=== PATIENT | female | born 1965 | race Hispanic/Latino ===

== ENCOUNTER 2017-06-14 17:57 | Emergency (ER) | payer SELFPAY ==
[2017-06-14 17:58] VITALS: BMI 34.7
[2017-06-14 18:02] VITALS: TEMP 97.7
--- NOTE | 2017-06-14 19:20 | ED PDOC ---
Arrival/HPI - General Chief Complaint: Medical Clearance Time Seen by Provider: 06/14/17 18:07 Historian: Patient - History of Present Illness Narrative History of Present Illness (Text): 06/14/17 18:34 51 year old female who presents to the Emergency department brought in by Ivelisse JAEGER under arrest. 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 Patient states her last dose was yesterday, states she has not had her dose today because it is not time yet. Patient also reports LUQ pain, which she states is chronic and comes and goes. Patient reports associated cough , nausea, and diarrhea for the past 3 days. Patient denies any fever, chills, radiation, back pain, trauma/injury, shortness of breath, chest pain, vomiting, urinary symptoms, abdominal surgery, or any other complaints. Symptom Onset: Gradual Symptom Course: Unchanged Activities at Onset: Rest, Light Context: Home Past Medical History - Provider Review Nursing Documentation Reviewed: Yes - Infectious Disease Hx of Infectious Diseases: None - Tetanus Immunization Tetanus Immunization: Unknown - Reproductive Menopause: Yes - Cardiac Hx Cardiac Disorders: No Other/Comment: cardiac arrest, - Pulmonary Hx Respiratory Disorders: Yes Hx Pulmonary Embolism: Yes - Neurological Hx Neurological Disorder: No - HEENT Hx HEENT Disorder: No - Renal Hx Renal Disorder: No - Endocrine/Metabolic Hx Endocrine Disorders: Yes Hx Hypothyroidism: Yes - Hematological/Oncological Hx Blood Disorders: Yes Hx Hepatitis C: Yes - Integumentary Hx Dermatological Disorder: No - Musculoskeletal/Rheumatological Hx Musculoskeletal Disorders: Yes Hx Falls: No Hx Herniated Disk: Yes - Gastrointestinal Hx Gastrointestinal Disorders: No - Genitourinary/Gynecological Hx Genitourinary Disorders: No - Psychiatric Hx Psychophysiologic Disorder: No Hx Substance Use: No - Past Surgical History Past Surgical History: No Previous - Surgical History Hx Section: Yes Hx Tonsillectomy: Yes Other/Comment: - Anesthesia Hx Anesthesia: Yes Hx Anesthesia Reactions: No Hx Malignant Hyperthermia: No - Suicidal Assessment Feels Threatened In Home Enviroment: No Family/Social History - Physician Review Nursing Documentation Reviewed: Yes Family/Social History: Unknown Family HX Smoking Status: Former Smoker Hx Alcohol Use: No Hx Substance Use: No Hx Substance Use Treatment: Yes Allergies/Home Meds Allergies/Adverse Reactions: Allergies No Known Allergies Allergy (Verified 06/14/17 18:11) Home Medications: Home Meds Medication Instructions Recorded Confirmed Levothyroxine [Synthroid] 1 tab PO DAILY 11/28/16 06/14/17 Warfarin [Coumadin] 6 mg PO DAILY 11/28/16 06/14/17 Enalapril Maleate [Vasotec] 1 tab PO DAILY 06/14/17 06/14/17 Lorazepam [Ativan] 1 mg PO DAILY 06/14/17 06/14/17 Review of Systems - Physician Review All systems were reviewed & negative as marked: Yes - Review of Systems Constitutional: Normal. absent: Fevers Eyes: Normal ENT: Normal Respiratory: Cough. absent: SOB Cardiovascular: Normal. absent: Chest Pain Gastrointestinal: Abdominal Pain, Diarrhea, Nausea Genitourinary Female: Normal. absent: Dysuria, Frequency, Hematuria, Urine Output Changes Musculoskeletal: Normal. absent: Back Pain, Neck Pain Skin: Normal. absent: Rash Neurological: Normal. absent: Headache, Dizziness Endocrine: Normal Hemo/Lymphatic: Normal Psychiatric: Normal Physical Exam Vital Signs Reviewed: Yes Vital Signs Temp Pulse Resp BP Pulse Ox 06/14/17 22:12 85 18 139/78 99 06/14/17 18:02 97.7 F 84 16 144/67 96 Temperature: Afebrile Blood Pressure: Normal Pulse: Regular Respiratory Rate: Normal Appearance: Positive for: Well-Appearing, Non-Toxic, Comfortable Pain Distress: None Mental Status: Positive for: Alert and Oriented X 3 - Systems Exam Head: Present: Atraumatic, Normocephalic Pupils: Present: PERRL Extroacular Muscles: Present: EOMI Conjunctiva: Present: Normal Mouth: Present: Moist Mucous Membranes Neck: Present: Normal Range of Motion Respiratory/Chest: Present: Clear to Auscultation, Good Air Exchange. No: Respiratory Distress, Accessory Muscle Use Cardiovascular: Present: Regular Rate and Rhythm, Normal S1, S2. No: Murmurs Abdomen: Present: Normal Bowel Sounds, Other (no pulsatile mass). No: Tenderness, Distention, Peritoneal Signs, Rebound, Guarding, Mass/Organomegaly Back: Present: Normal Inspection. No: CVA Tenderness, Midline Tenderness Upper Extremity: Present: Normal Inspection, Normal ROM, NORMAL PULSES, Neurovascularly Intact. No: Cyanosis, Edema Lower Extremity: Present: Normal Inspection, NORMAL PULSES, Normal ROM, Neurovascularly Intact, Capillary Refill < 2 s. No: Edema, CALF TENDERNESS, Cyanosis, Doyle's Sign, Tenderness, Swelling, Erythema, Deformity, Temperature Abnormalties Neurological: Present: GCS=15, CN II-XII Intact, Speech Normal, Motor Func Grossly Intact, Normal Sensory Function Skin: Present: Warm, Dry, Normal Color. No: Rashes Psychiatric: Present: Alert, Oriented x 3, Normal Insight, Normal Concentration Medical Decision Making ED Course and Treatment: 06/14/17 18:34 Impression: 51 year old female brought in under police custody. Pt complaining of LUQ pain with cough, nausea, and diarrhea x 3 days. Plan: -- US Duplex Lower Extremities -- EKG -- Chest X-ray -- Labs, cardiac enzymes, D-dimer -- Urinalysis, urine cultures -- Zofran -- Pepcid -- Reassess and disposition Progress Notes: 06/14/17 20:45 Lab results reviewed. UA still pending. US doppler of LE shows no DVT, EKG and CXR are wnl. 06/14/17 21:30 Pt medicated with a dose of her usual dose of coumadin 6 mg PO. Otherwise, pt is medically cleared for incarceration. Re-evaluation Time: 20:49 Reassessment Condition: Re-examined, Improved (Pt is laying in bed comfortably, reports of a mild headache, denies any chest pain, SOB, abdominal pain or nausea , had no episodes of diarrhea while in the ER. Given tylenol for headache and kayexalate for K 5.2.) - Lab Interpretations Lab Results: 06/14/17 20:00 06/14/17 20:00 Lab Results 06/14/17 20:45: Urine Color Yellow, Urine Appearance Clear, Urine pH 6.0, Ur Specific [place] 1.025, Urine Protein Negative, Urine Glucose (UA) Negative, Urine Ketones Negative, Urine Blood Negative, Urine Nitrate Negative, Urine Bilirubin Negative, Urine Urobilinogen 0.2, Ur Leukocyte Esterase Negative 06/14/17 20:00: Lipase 171 06/14/17 20:00: Sodium 137, Potassium 5.2 H, Chloride 103, Carbon Dioxide 26, Anion Gap 13, BUN 12, Creatinine 0.8, Est GFR ( Amer) > 60, Est GFR (Non- Af Amer) > 60, Random Glucose 104, Calcium 9.4, Total Bilirubin 0.8, AST 60 H, ALT 50, Alkaline Phosphatase 101, Lactate Dehydrogenase 876 H, Total Creatine Kinase 146, Troponin I < 0.01, Total Protein 8.0, Albumin 4.2, Globulin 3.7, Albumin/Globulin Ratio 1.1 06/14/17 20:00: PT 10.9, INR 1.01, APTT 26.2, D-Dimer, Quantitative 0.24 06/14/17 20:00: WBC 8.4, RBC 4.79, Hgb 15.0, Hct 44.4, MCV 92.7, MCH 31.3, MCHC 33.8, RDW 14.8 H, Plt Count 218, MPV 11.2 H, Gran % 73.5 H, Lymph % (Auto) 16.2 L, [place] % (Auto) 9.4 H, Eos % (Auto) 0.7 L, Baso % (Auto) 0.2, Gran # 6.18, Lymph # 1.4, [place] # 0.8 H, Eos # 0.1, Baso # 0.02 I have reviewed the lab results: Yes (K 5.2, trop (-), d-dimer (-), INR 1) Interpretation: All labs normal - RAD Interpretation Narrative RAD Interpretations (Text): 06/14/17 20:48 CXR: NAD as read by FANNIE US doppler b/l LE : (-) DVT, as per US tech. Radiology Orders: 06/14/17 18:34 DUPLEX LOWER EXTRM VEIN BILAT [US] Stat 06/14/17 18:35 CHEST PORTABLE [RAD] Stat - EKG Interpretation EKG Interpretation (Text): 06/14/17 20:49 EKG: NSR at 72 bpm, normal axis, (-) acute ST changes, as read by PA Interpreted by ED Physician: Yes Type: 12 lead EKG - Medication Orders Current Medication Orders: Discontinued Medications Acetaminophen (Tylenol 325mg Tab) 650 mg PO STAT STA Stop: 06/14/17 20:42 Last Admin: 06/14/17 20:46 Dose: 650 mg Acetaminophen (Tylenol 325mg Tab) Confirm Administered Dose 650 mg .ROUTE .STK- MED ONE Stop: 06/14/17 20:47 Last Admin: 06/14/17 20:53 Dose: Famotidine (Pepcid) 20 mg IVP STAT STA Stop: 06/14/17 18:37 Last Admin: 06/14/17 20:12 Dose: 20 mg Ondansetron HCl (Zofran Inj) 4 mg IVP STAT STA Stop: 06/14/17 18:37 Last Admin: 06/14/17 20:12 Dose: 4 mg Sodium Polystyrene Sulfonate (Kayexalate Oral Susp) 15 gm PO STAT STA Stop: 06/14/17 20:48 Last Admin: 06/14/17 21:25 Dose: 15 gm Warfarin Sodium (Coumadin) 6 mg PO 1800 ROMAN PRN Reason: Protocol Last Admin: 06/14/17 21:54 Dose: 6 mg - PA / ACCOUNT SUPPORT MANAGER / Resident Statement MD/DO has reviewed & agrees with the documentation as recorded. - Scribe Statement The provider has reviewed the documentation as recorded by the Arsen Mendiola Provider Scribe Attestation: All medical record entries made by the Nedaibisac were at my direction and personally dictated by me. I have reviewed the chart and agree that the record accurately reflects my personal performance of the history, physical exam, medical decision making, and the department course for this patient. I have also personally directed, reviewed, and agree with the discharge instructions and disposition. Disposition/Present on Arrival - Present on Arrival Any Indicators Present on Arrival: Yes History of DVT/PE: Yes History of Uncontrolled Diabetes: No Urinary Catheter: No History of Decub. Ulcer: No History Surgical Site Infection Following: None - Disposition Have Diagnosis and Disposition been Completed?: Yes Diagnosis: Abdominal pain Disposition: RELEASED IN POLICE CUSTODY Disposition Time: 21:35 Patient Plan: Discharge Condition: STABLE Discharge Instructions (ExitCare): Acute Abdominal Pain (ED) Print Language: KAZAKH Additional Instructions: Patient is medically cleared for incarceration. Return to the ER at any time for any new or worsening symptoms. Referrals: Cara Shrestha [Primary Care Provider] - Follow up with primary
[2017-06-14 20:20] LABS: BASO # 0.02 K/mm3 (0.0-2.0); BASO % 0.2 % (0.0-3.0); EOS # 0.1 (0.0-0.7); EOS % 0.7 % (1.5-5.0); GRAN # 6.18 (1.4-6.5); GRAN % 73.5 % (50.0-68.0); LYMPH # 1.4 (1.2-3.4); LYMPH % 16.2 % (22.0-35.0); MEAN CELL VOLUME 92.7 fL (80.0-105.0); MEAN CORPUSCULAR HEMOGLOBIN 31.3 pg (25.0-35.0); MEAN CORPUSCULAR HGB CONC 33.8 g/dl (31.0-37.0); MEAN PLATELET VOLUME 11.2 fl (7.0-11.0); MONO # 0.8 (0.1-0.6); MONO % 9.4 % (1.0-6.0); PLATELET COUNT 218 10^3/uL (120.0-450.0); RBC 4.79 10^6/uL (3.5-6.1); RED CELL DISTRIBUTION WIDTH 14.8 % (11.5-14.5); WHITE BLOOD COUNT 8.4 10^3/ul (4.5-11.0)
[2017-06-14 20:27] LABS: ALB/GLOB RATIO 1.1 (1.1-1.8); ALBUMIN 4.2 g/dL (3.0-4.8); ALT/SGPT 50 U/L (7-56); AST/SGOT 60 U/L (15-39); BLOOD UREA NITROGEN 12 mg/dL (7-21); CALCIUM 9.4 mg/dL (8.4-10.5); GFR AFRICAN-AMERICAN > 60; GFR NON-AFRICAN AMERICAN > 60
[2017-06-14 20:32] LABS: INR 1.01 (0.93-1.08); PARTIAL THROMBOPLASTIN TIME 26.2 Seconds (23.7-30.8); PROTHROMBIN TIME 10.9 Seconds (9.9-11.8)
[2017-06-14 20:33] LABS: D DIMER 0.24 mg/L FEU (0-0.50)
[2017-06-14 20:39] LABS: TROPONIN I < 0.01 ng/mL
[2017-06-14] MEDS ORDERED: Sod Polystyrene Sulf 15 gm/60 ml Oral Susp PO STA (20:47)
[2017-06-14 21:16] LABS: URINE BILIRUBIN NEGATIVE (NEGATIVE); URINE BLOOD NEGATIVE (NEGATIVE); URINE GLUCOSE (UA) NEGATIVE (NEGATIVE); URINE LEUKOCYTE ESTERASE NEGATIVE Leu/uL (NEGATIVE); URINE NITRATE NEGATIVE (NEGATIVE); URINE PROTEIN NEGATIVE mg/dL (<30 mg/dL); URINE UROBILINOGEN 0.2 E.U./dL (<1 E.U./dL)
[2017-06-14 21:18] LABS: URINE APPEARANCE CLEAR (CLEAR); URINE COLOR YELLOW (YELLOW)
[2017-06-14 22:13] VITALS: BP 139/78; PULSE 85; RESP 18; O2SAT 99
--- NOTE | 2017-06-15 09:27 | RAD ---
HISTORY: LUQ pain COMPARISON: 11/10/2016 FINDINGS: LUNGS: No active pulmonary disease. PLEURA: No significant pleural effusion identified, no pneumothorax apparent. CARDIOVASCULAR: Normal. OSSEOUS STRUCTURES: No significant abnormalities. VISUALIZED UPPER ABDOMEN: Normal. OTHER FINDINGS: None. IMPRESSION: No active disease.
--- NOTE | 2017-06-15 11:35 | CARD ---
APPROVED REPORT EKG Measurement Heart [id number] <Conclusion> Normal sinus rhythm Normal ECG
--- NOTE | 2017-06-15 22:56 | CARD ---
APPROVED REPORT EKG Measurement Heart [id number] <Conclusion> Normal sinus rhythm Prolonged QT Abnormal ECG
--- NOTE | 2017-06-16 11:33 | US ---
HISTORY: Leg pain and swelling. Evaluate for DVT PHYSICIAN(S): Clayton Hopson MD. TECHNIQUE: Duplex sonography and color-flow Doppler with graded compression were used to evaluate the deep venous systems of both lower extremities. FINDINGS: The visualized deep venous systems of both lower extremities are sonographically normal and compressible. Normal wave forms and augmentation are seen. There is no sonographic evidence for deep venous thrombosis in the visualized segments of both lower extremities. IMPRESSION: No sonographic evidence for deep venous thrombosis in the visualized segments of both lower extremities.
== END 2017-06-14 22:12 ==
LOC: ED 17:57
DX: R10.9 Unspecified abdominal pain (principal)
CPT/HCPCS: 71010; 80053; 81003; 82550; 83615; 83690; 84484; 85025; 85378; 85610; 85730; 87086; 93005; 93970; 96374; 96375; 99282; J2405

== ENCOUNTER 2017-11-23 09:28 | Emergency (ER) | payer MEDICAID ==
[2017-11-23] MEDS ORDERED: Naloxone 0.4 mg/ml Inj (Adult) ONE (09:32)
[2017-11-23 09:36] VITALS: BMI 28.3
--- NOTE | 2017-11-23 09:57 | ED PDOC ---
Arrival/HPI - General Chief Complaint: Substance Abuse Time Seen by Provider: 11/23/17 09:47 Historian: EMS - History of Present Illness Narrative History of Present Illness (Text): 11/23/17 09:58 A 52 year old female was brought in by friend to the emergency department after becoming unresponsive. Limited history due to patient's condition. Time/Duration: Prior to Arrival Symptom Onset: Sudden Symptom Course: Unchanged Activities at Onset: Rest Past Medical History - Provider Review Nursing Documentation Reviewed: Yes - Infectious Disease Hx of Infectious Diseases: None - Tetanus Immunization Tetanus Immunization: Unknown - Cardiac Hx Cardiac Disorders: Yes Hx Hypertension: Yes Other/Comment: cardiac arrest, - Pulmonary Hx Respiratory Disorders: Yes Hx Pulmonary Embolism: Yes - Neurological Hx Neurological Disorder: No - HEENT Hx HEENT Disorder: No - Renal Hx Renal Disorder: No - Endocrine/Metabolic Hx Endocrine Disorders: Yes Hx Hypothyroidism: Yes - Hematological/Oncological Hx Blood Disorders: Yes Hx Hepatitis C: Yes - Integumentary Hx Dermatological Disorder: No - Musculoskeletal/Rheumatological Hx Musculoskeletal Disorders: Yes Hx Falls: No Hx Herniated Disk: Yes - Gastrointestinal Hx Gastrointestinal Disorders: No - Genitourinary/Gynecological Hx Genitourinary Disorders: No - Psychiatric Hx Psychophysiologic Disorder: No Hx Substance Use: No (pt denies drug use) - Past Surgical History Past Surgical History: No Previous - Surgical History Hx Section: Yes Hx Tonsillectomy: Yes Other/Comment: - Anesthesia Hx Anesthesia: Yes Hx Anesthesia Reactions: No Hx Malignant Hyperthermia: No - Suicidal Assessment Feels Threatened In Home Enviroment: No Family/Social History - Physician Review Nursing Documentation Reviewed: Yes Family/Social History: Other (nc) Smoking Status: Former Smoker Hx Alcohol Use: Yes Frequency of alcohol use: Socially Hx Substance Use: No (pt denies drug use) Hx Substance Use Treatment: Yes Allergies/Home Meds Allergies/Adverse Reactions: Allergies No Known Allergies Allergy (Verified 11/23/17 09:36) Home Medications: Home Meds Medication Instructions Recorded Confirmed Levothyroxine [Synthroid] 1 tab PO DAILY 11/28/16 11/23/17 Warfarin [Coumadin] 6 mg PO DAILY 11/28/16 11/23/17 Enalapril Maleate [Vasotec] 1 tab PO DAILY 06/14/17 11/23/17 Lorazepam [Ativan] 1 mg PO DAILY 06/14/17 11/23/17 Review of Systems - Review of Systems Constitutional: absent: Fevers Respiratory: absent: SOB Cardiovascular: absent: Chest Pain Gastrointestinal: absent: Abdominal Pain, Vomiting Genitourinary Female: absent: Dysuria Neurological: absent: Headache, Dizziness Psychiatric: absent: Suicidal Ideation Physical Exam Vital Signs Reviewed: Yes Vital Signs Temp Pulse Resp BP Pulse Ox 11/23/17 13:28 98.6 F 78 18 145/79 98 11/23/17 09:39 96 H 22 154/85 H 96 - Systems Exam Head: Present: Atraumatic, Normocephalic Pupils: Present: PERRL Extroacular Muscles: Present: EOMI Conjunctiva: Present: Normal Mouth: Present: Moist Mucous Membranes Neck: Present: Normal Range of Motion Respiratory/Chest: Present: Clear to Auscultation, Good Air Exchange. No: Respiratory Distress, Accessory Muscle Use Cardiovascular: Present: Regular Rate and Rhythm, Normal S1, S2. No: Murmurs Abdomen: Present: Normal Bowel Sounds. No: Tenderness, Distention, Peritoneal Signs Upper Extremity: Present: NORMAL PULSES. No: Cyanosis, Edema Lower Extremity: No: Edema Neurological: Present: GCS=15, CN II-XII Intact, Motor Func Grossly Intact, Normal Sensory Function, Other (no focal deficits) Skin: Present: Warm, Dry. No: Rashes Psychiatric: Present: Alert, Oriented x 3 Medical Decision Making ED Course and Treatment: 11/23/17 09:54 Patient arrived with agonal respirations. Skin was cyanotic and mottled. After patient was given 0.4 mg of narcan, patient woke up. Skin pinked up O2 98% on monitor. Pupils pinpoint, pined up, now mid-range. Patient is awake, alert and oriented X3. Full exam is done at this point. Spoke with patient's daughter on the phone, who states patient has a history of snorting heroine. Daughter saw patient an hour ago, normal at that time. Patient told daughter she was going out. 11/23/17 12:15 Patient is resting comfortably, in no distress. She admits to using half a bag of heroine this morning. She states she relapsed after being clean for 2 weeks. 11/23/17 13:40 Patient is resting comfortably, requesting to be discharged. - Lab Interpretations Lab Results: 11/23/17 10:04 11/23/17 10:04 Lab Results 11/23/17 10:04: Sodium 137, Potassium 4.2, Chloride 103, Carbon Dioxide 22, Anion Gap 16, BUN 14, Creatinine 1.0, Est GFR ( Amer) > 60, Est GFR (Non- Af Amer) 58, Random Glucose 243 H, Calcium 9.4, Total Bilirubin 0.8, AST 62 H, ALT 62 H, Alkaline Phosphatase 108, Total Protein 7.9, Albumin 4.4, Globulin 3.5 , Albumin/Globulin Ratio 1.3 11/23/17 10:04: PT 16.9 H, INR 1.52 H 11/23/17 10:04: WBC 5.2 D, RBC 4.61, Hgb 14.9, Hct 44.9, MCV 97.4, MCH 32.3, MCHC 33.2, RDW 13.8, Plt Count 222, MPV 10.3, Gran % 54.1, Lymph % (Auto) 33.3, [place] % (Auto) 10.5 H, Eos % (Auto) 1.5, Baso % (Auto) 0.6, Gran # 2.83, Lymph # 1.7, [place] # 0.6, Eos # 0.1, Baso # 0.03 11/23/17 09:42: POC Glucose (mg/dL) 194 H I have reviewed the lab results: Yes - Medication Orders Current Medication Orders: Discontinued Medications Sodium Chloride (Sodium Chloride 0.9%) 1,000 mls @ 999 mls/hr IV .Q1H1M STA Stop: 11/23/17 13:12 Last Admin: 11/23/17 10:05 Dose: 999 mls/hr eMAR Start Stop Document 11/23/17 10:05 EWO (Rec: 11/23/17 12:57 [id number]) Intravenous Solution Start Date 11/23/17 Start Time 10:05 End Date 11/23/17 End time 11:05 Total Infusion Time 60 - Scribe Statement The provider has reviewed the documentation as recorded by the Arsen Barrientos Provider Scribe Attestation: All medical record entries made by the Scribe were at my direction and personally dictated by me. I have reviewed the chart and agree that the record accurately reflects my personal performance of the history, physical exam, medical decision making, and the department course for this patient. I have also personally directed, reviewed, and agree with the discharge instructions and disposition. Disposition/Present on Arrival - Present on Arrival Any Indicators Present on Arrival: Yes History of DVT/PE: Yes History of Uncontrolled Diabetes: No Urinary Catheter: No History of Decub. Ulcer: No History Surgical Site Infection Following: None - Disposition Have Diagnosis and Disposition been Completed?: Yes Diagnosis: Opioid overdose Disposition: HOME/ ROUTINE Disposition Time: 13:40 Condition: IMPROVED Discharge Instructions (ExitCare): Opioid Overdose (ED) Referrals: Sunday Guillaume MD [Primary Care Provider] - Follow up with primary Forms: [employer] (Yakut)
[2017-11-23 10:11] LABS: BASO # 0.03 K/mm3 (0.0-2.0); BASO % 0.6 % (0.0-3.0); EOS # 0.1 (0.0-0.7); EOS % 1.5 % (1.5-5.0); GRAN # 2.83 (1.4-6.5); GRAN % 54.1 % (50.0-68.0); HEMOGLOBIN 14.9 g/dL (12.0-16.0); LYMPH # 1.7 (1.2-3.4); LYMPH % 33.3 % (22.0-35.0); MEAN CELL VOLUME 97.4 fl (80.0-105.0); MEAN CORPUSCULAR HEMOGLOBIN 32.3 pg (25.0-35.0); MEAN CORPUSCULAR HGB CONC 33.2 g/dl (31.0-37.0); MEAN PLATELET VOLUME 10.3 fl (7.0-11.0); MONO # 0.6 (0.1-0.6); MONO % 10.5 % (1.0-6.0); RBC 4.61 10^6/uL (3.5-6.1); RED CELL DISTRIBUTION WIDTH 13.8 % (11.5-14.5); WHITE BLOOD COUNT 5.2 10^3/ul (4.5-11.0)
[2017-11-23 10:22] LABS: ALB/GLOB RATIO 1.3 (1.1-1.8); ALBUMIN 4.4 g/dL (3.0-4.8); ALT/SGPT 62 U/L (7-56); AST/SGOT 62 U/L (14-36); BLOOD UREA NITROGEN 14 mg/dL (7-21); CALCIUM 9.4 mg/dL (8.4-10.5); GFR AFRICAN-AMERICAN > 60; GFR NON-AFRICAN AMERICAN 58
[2017-11-23 10:25] LABS: INR 1.52 (0.93-1.08); PROTHROMBIN TIME 16.9 SECONDS (9.4-12.5)
[2017-11-23] MEDS ORDERED: Sodium Chloride 0.9% 1,000 ML IV STA (12:12)
[2017-11-23 13:37] VITALS: BP 145/79; PULSE 78; RESP 18; TEMP 98.6; O2SAT 98
--- NOTE | 2017-11-23 15:24 | CARD ---
APPROVED REPORT EKG Measurement Heart [id number] <Conclusion> Accelerated Junctional rhythm with frequent premature ventricular complexes Nonspecific T wave abnormality Prolonged QT Abnormal ECG
== END 2017-11-23 13:51 | disposition home or self-care (01) ==
LOC: ED 09:28
DX: T40.2X1A Poisoning by other opioids, accidental (unintentional), initial encounter (principal); Y92.89 Other specified places as the place of occurrence of the external cause; I10 Essential (primary) hypertension; Z87.891 Personal history of nicotine dependence
CPT/HCPCS: 80053; 82948; 85025; 85610; 93005; 96360; 99284; J2310; J7040

== ENCOUNTER 2018-03-01 13:07 | Observation (INO) | payer MEDICAID ==
[2018-03-01 13:08] VITALS: BMI 28.3
--- NOTE | 2018-03-01 13:19 | ED PDOC ---
Arrival/HPI - General Historian: Patient - History of Present Illness Time/Duration: Prior to Arrival Symptom Onset: Sudden Symptom Course: Improving Activities at Onset: Light Context: Other (Bus) - General Time Seen by Provider: 03/01/18 13:08 - History of Present Illness Narrative History of Present Illness (Text): 03/01/18 13:14 52 year old female who presents to the emergency department s/p being found unresponsive on the bus. Patient reportedly was found by business intelligence consultant on the bus, face down on the floor. EMS notes patient was unresponsive and had slow respirations. EMS administered intranasal Narcan with immediate improvement. Patient admits to taking heroine prior to incident and drinking alcohol this morning. (Jerry Gonzales) Past Medical History - Provider Review Nursing Documentation Reviewed: Yes - Infectious Disease Hx of Infectious Diseases: None - Tetanus Immunization Tetanus Immunization: Unknown - Cardiac Hx Cardiac Disorders: Yes Hx Hypertension: Yes Other/Comment: cardiac arrest, - Pulmonary Hx Respiratory Disorders: Yes Hx Pulmonary Embolism: Yes - Neurological Hx Neurological Disorder: No - HEENT Hx HEENT Disorder: No - Renal Hx Renal Disorder: No - Endocrine/Metabolic Hx Endocrine Disorders: Yes Hx Hypothyroidism: Yes - Hematological/Oncological Hx Blood Disorders: Yes Hx Hepatitis C: Yes - Integumentary Hx Dermatological Disorder: No - Musculoskeletal/Rheumatological Hx Musculoskeletal Disorders: Yes Hx Herniated Disk: Yes - Gastrointestinal Hx Gastrointestinal Disorders: No - Genitourinary/Gynecological Hx Genitourinary Disorders: No - Psychiatric Hx Psychophysiologic Disorder: No Hx Substance Use: Yes - Past Surgical History Past Surgical History: No Previous - Surgical History Hx Section: Yes (x3) Hx Tonsillectomy: Yes Other/Comment: - Anesthesia Hx Anesthesia: Yes Hx Anesthesia Reactions: No Hx Malignant Hyperthermia: No - Suicidal Assessment Feels Threatened In Home Enviroment: No Family/Social History - Physician Review Nursing Documentation Reviewed: Yes Family/Social History: Unknown Family HX Smoking Status: Light Smoker < 10 Cigarettes Daily Hx Alcohol Use: Yes Frequency of alcohol use: Few days per week Hx Substance Use: Yes Substance used: heroin Hx Substance Use Treatment: Yes Allergies/Home Meds Allergies/Adverse Reactions: Allergies No Known Allergies Allergy (Verified 03/01/18 13:14) Home Medications: Home Meds Medication Instructions Recorded Confirmed No Known Home Med 03/01/18 03/01/18 Review of Systems - Review of Systems Constitutional: Fatigue. absent: Fevers Eyes: absent: Vision Changes, Eye Pain Respiratory: Cough. absent: SOB Cardiovascular: absent: Chest Pain, GARCIA, Orthopnea Gastrointestinal: Nausea. absent: Abdominal Pain, Vomiting, Appetite Changes, Hematochezia Genitourinary Female: absent: Dysuria, Frequency, Hematuria Musculoskeletal: Back Pain. absent: Neck Pain Skin: absent: Rash Neurological: absent: Headache, Dizziness, Focal Weakness Endocrine: absent: Polyuria Hemo/Lymphatic: absent: Easy Bleeding Psychiatric: Depression. absent: Anxiety, Suicidal Ideation Physical Exam Vital Signs Reviewed: Yes Temperature: Afebrile Blood Pressure: Hypertensive Pulse: Regular Respiratory Rate: Normal Appearance: Positive for: Comfortable Mental Status: Positive for: Alert and Oriented X 3 - Physical Exam Narrative Physical Exam (Text): 03/01/18 13:26 Head: Atraumatic. Normocephalic. Eyes: Pupils pinpoint but reactive. Visual acuity and espana intact. Extraocular movements intact. No conjunctival injection. ENT: Mucous membranes are moist and intact. Oropharynx is clear and symmetric. Neck: Supple. Full ROM. No JVD. No lymphadenopathy. No midline tenderness. Cardiovascular: Regular rate. Regular rhythm. No murmurs, rubs, or gallops. Distal pulses are 2+ and symmetric. Pulmonary/Chest: No evidence of respiratory distress. Clear to auscultation bilaterally. No wheezing, rales or rhonchi. Abdominal: Soft and non-distended. There is no tenderness. No rebound, guarding, or rigidity. No organomegaly. Good bowel sounds. Back: No CVA tenderness. Mild lower lumbar paraspinal tenderness. No deformity. No pain with straight leg testing. Extremities: Bilateral leg edema, nonpitting. No cyanosis. No clubbing. Full range of motion in all extremities. No calf tenderness. No streaking or cellulitis. Skin: Skin is warm and dry. No petechiae. No purpura. Neurological: Alert, awake, and oriented to person, place, time, and situation. Normal speech. No facial droop. No pronator drift. Conversive. No meningeal signs. Psychiatric: Good eye contact. Reports financial stressors with depressive symptoms regarding financial stressors. Denies suicidal ideation. (Jerry Gonzales) Vital Signs Temp Pulse Resp BP Pulse Ox 03/01/18 21:39 73 16 109/62 95 03/01/18 17:50 74 16 145/63 94 L 03/01/18 15:31 67 14 120/68 94 L 03/01/18 13:23 98 F 82 17 153/79 H 96 Medical Decision Making - RAD Interpretation Combining Machine Operator: Radiologist - EKG Interpretation Interpreted by ED Physician: Yes Type: 12 lead EKG ED Course and Treatment: 03/01/18 13:23 Impression: 52 year old female presents to emergency department s/p being found unresponsive on the bus. Plan: -- EKG -- Acetaminophen -- Labs -- Salicylate -- Cardiac Enzymes -- Chest X-ray -- Sodium Chloride -- POC Urine Test -- Urinalysis -- Reassess and disposition Progress Notes: History obtained from EMS personnel as well as patient. Upon arrival to the Emergency department, she is alert and responsive. Admits to using heroin and drinking alcohol prior to arrival. States that she has financial stressors and "I haven't done this in a while". Denies suicidal ideation. Patient reportedly received Narcan prior to arrival and had immediate response as per medics. Patient on examination is cv stable, no respiratory distress. She was placed on monitor and will continue serial exams. 03/01/18 17:00 Chest X-ray: Creator : Dr. Gibson, Joce CASAS COMPARISON: 06/14/2017 FINDINGS: LUNGS: No active pulmonary disease. PLEURA: No significant pleural effusion identified, no pneumothorax apparent. CARDIOVASCULAR: Normal. OSSEOUS STRUCTURES: No significant abnormalities. VISUALIZED UPPER ABDOMEN: Normal. OTHER FINDINGS: None. IMPRESSION: No active disease. Patient monitored in Emergency department with serial exams. She is sleeping but easily arousable throughout Emergency department monitoring. At 1900 patient awake, asking for something to eat, states she is apologetic for using heroin and drinking this AM. Denies suicidal or homicidal ideation. She states she is not depressed and she refused mental health evaluation. She states "I've used heroin before and this never happens to me". She states to me that "for the past 2-3 months I get pain to my right arm and sometimes feel shortness of breath". She states that these symptoms have been persistent for months, not acutely worse today. Review of her history reveals that patient has had prior history of pulmonary embolism and dvt. She states that her physician told her she could discontinue her anticoagulants in September 2017. She admits that she still smokes. CT angio ordered given her complaints noted on re-exam. Ultrasound of legs ordered. Patient agreeable to treatment plan, she is pleasant and cooperative. Risks of smoking reviewed in laymens' terms. 03/01/18 20:00 03/01/18 20:33 Preliminary doppler ultrasound report of bilateral legs is negative for DVT. 03/01/18 21:33 Patient is ambulatory, eating. Comfortable. Currently no shortness of breath or hypoxia. No pleuritic pain. CT angio ordered although given poor iv access, vq scan ordered as well as ddimer. Given prior cardiac history, patient will be admitted to hospitalist service, accepted by Dr. Perdue. VQ scan pending endorsed to admitting team. Patient agreeable to treatment plan. 03/01/18 21:43 Ddimer elevated. Will order lovenox 1mg/kg pending vq scan results. Treatment plan reviewed with patient she is agreeable to treatment plan. 03/01/18 23:23 VQ scan results pending. Follow-up of results endorsed to Dr. Perdue and admitting team. (Jerry Gonzales) - Lab Interpretations Lab Results: 03/01/18 13:40 03/01/18 13:40 Lab Results 03/01/18 21:00: PT 10.9, INR 0.96, APTT 27.1 03/01/18 20:15: D-Dimer, Quantitative 671 H 03/01/18 14:50: Urine Opiates Screen Positive H, Urine Methadone Screen Positive H, Ur Barbiturates Screen Negative, Ur Phencyclidine Scrn Negative, Ur Amphetamines Screen Negative, U Benzodiazepines Scrn Negative, U Oth Cocaine Metabols Negative, U Cannabinoids Screen Negative 03/01/18 14:50: Urine Color Yellow, Urine Appearance Clear, Urine pH 6.0, Ur Specific [place] 1.025, Urine Protein Negative, Urine Glucose (UA) Negative, Urine Ketones Negative, Urine Blood Negative, Urine Nitrate Negative, Urine Bilirubin Negative, Urine Urobilinogen 0.2, Ur Leukocyte Esterase Negative 03/01/18 13:40: Alcohol, Quantitative 77 H 03/01/18 13:40: Salicylates < 1 L, Acetaminophen < 10.0 L 03/01/18 13:40: Sodium 140, Potassium 3.8, Chloride 105, Carbon Dioxide 20 L, Anion Gap 19, BUN 14, Creatinine 1.1, Est GFR ( Amer) > 60, Est GFR (Non- Af Amer) 52, Random Glucose 120 H, Calcium 9.8, Total Bilirubin 0.2, AST 48 H D , ALT 52, Alkaline Phosphatase 76, Total Creatine Kinase 165, Total Protein 7.7 , Albumin 4.3, Globulin 3.4, Albumin/Globulin Ratio 1.3 03/01/18 13:40: WBC 6.8 D, RBC 4.64, Hgb 14.8, Hct 44.3, MCV 95.5, MCH 31.9, MCHC 33.4, RDW 12.9, Plt Count 217, MPV 10.5, Gran % 62.5, Lymph % (Auto) 27.9, [place] % (Auto) 6.6 H, Eos % (Auto) 2.6, Baso % (Auto) 0.4, Gran # 4.25, Lymph # ( Auto) 1.9, [place] # (Auto) 0.5, Eos # (Auto) 0.2, Baso # (Auto) 0.03 - RAD Interpretation Radiology Orders: 03/01/18 13:17 CHEST PORTABLE [RAD] Stat 03/01/18 19:45 DUPLEX LOWER EXTRM VEIN BILAT [US] Stat 03/01/18 21:12 LUNG PERF & VENT SCAN [NM] Stat - EKG Interpretation EKG Interpretation (Text): EKG at 14:24 normal sinus rhythm rate of [address] elevations (Jerry Gonzales) - Medication Orders Current Medication Orders: Discontinued Medications Aspirin (Aspirin Chewable) 81 mg PO STAT STA Stop: 03/01/18 21:13 Last Admin: 03/01/18 21:47 Dose: 81 mg Aspirin (Aspirin Chewable) 81 mg PO DAILY [facility] Last Admin: 03/02/18 11:21 Dose: 81 mg Atorvastatin Calcium (Lipitor) 20 mg PO STAT STA Stop: 03/01/18 23:00 Last Admin: 03/02/18 06:14 Dose: Not Given Non-Admin Reason: Patient Refused Atorvastatin Calcium (Lipitor) 20 mg PO DIN [facility] Last Admin: 03/02/18 17:38 Dose: 20 mg Enoxaparin Sodium (Lovenox) 70 mg SC STAT STA PRN Reason: Protocol Stop: 03/01/18 22:10 Last Admin: 03/01/18 22:16 Dose: 70 mg Subcutaneous Administrations Document 03/01/18 22:16 JOL (Rec: 03/01/18 22:[address] [facility]-[id number]) Injection Site MAR Injection Site Left Abdomen Charges for Administration # of Subcutaneous Administrations 1 Folic Acid (Folic Acid) 1 mg PO DAILY [facility] Last Admin: 03/02/18 11:24 Dose: 1 mg Heparin Sodium (Porcine) (Heparin) 5,000 units SC Q8 [facility] PRN Reason: Protocol Last Admin: 03/03/18 05:55 Dose: 5,000 units Subcutaneous Administrations Document 03/03/18 05:55 [facility] (Rec: 03/03/18 05:55 [facility] [id number]) Injection Site MAR Injection Site Left Abdomen Charges for Administration # of Subcutaneous Administrations 1 Sodium Chloride (Sodium Chloride 0.9%) 1,000 mls @ 100 mls/hr IV .Q10H [facility] Last Admin: 03/03/18 05:54 Dose: 100 mls/hr eMAR Start Stop Document 03/03/18 05:54 [facility] (Rec: 03/03/18 05:54 [id number] Intravenous Solution Start Date 03/03/18 Start Time 05:54 End Date 03/03/18 Lorazepam (Ativan) 2 mg IVP Q6H PRN; Protocol PRN Reason: Symptoms of alcohol withdrawl Last Admin: 03/02/18 06:50 Dose: 2 mg IVP Administration Document 03/02/18 06:50 TTC (Rec: 03/02/18 06:50 TTC [id number]) Charges for Administration # of IVP Administrations 1 Behavioural Document 03/02/18 06:50 TTC (Rec: 03/02/18 06:50 TTC [id number]) Maintenance Maintenance Dose No Nonmedicinal Nonmedicinal Interventions Redirect Behavior Behavior for Medication: Anxiety Re-Assess: Reassess Psych Meds Document 03/02/18 07:20 JW (Rec: 03/02/18 13:16 JW [id number]) Reassess Psych Med Effective Lorazepam (Ativan) 1 mg IVP Q4H [facility] PRN Reason: Protocol Last Admin: 03/03/18 05:54 Dose: 1 mg IVP Administration Document 03/03/18 05:54 [facility] (Rec: 03/03/18 05:54 [id number]) Charges for Administration # of IVP Administrations 1 Behavioural Document 03/03/18 05:54 [facility] (Rec: 03/03/18 05:54 [id number]) Maintenance Maintenance Dose Yes Re-Assess: Reassess Psych Meds Document 03/03/18 06:24 MF (Rec: 03/03/18 08:24 [id number]) Reassess Psych Med Effective Lorazepam (Ativan) 1 mg IVP Q6H PRN; Protocol PRN Reason: Symptoms of alcohol withdrawl Last Admin: 03/03/18 08:43 Dose: 1 mg IVP Administration Document 03/03/18 08:43 MF (Rec: 03/03/18 08:[address] [id number]) Charges for Administration # of IVP Administrations 1 Behavioural Document 03/03/18 08:43 MF (Rec: 03/03/18 08:43 [id number]) Maintenance Maintenance Dose Yes Behavior Behavior for Medication: Anxiety Re-Assess: Reassess Psych Meds Document 03/03/18 09:13 MF (Rec: 03/03/18 09:20 [id number]) Reassess Psych Med Effective Lorazepam (Ativan) 0.5 mg IVP Q4H [facility] PRN Reason: Protocol Multivitamins (Thera Tab) 1 tab PO 0800 ROMAN Last Admin: 03/03/18 08:43 Dose: 1 tab Pantoprazole Sodium (Protonix Inj) 40 mg IVP DAILY [facility] Last Admin: 03/02/18 11:25 Dose: 40 mg IVP Administration Document 03/02/18 11:25 (Rec: 03/02/18 11:25 JW [id number]) Charges for Administration # of IVP Administrations 1 Pantoprazole Sodium (Protonix Ec Tab) 40 mg PO ACB ROMAN Last Admin: 03/03/18 08:43 Dose: 40 mg Thiamine HCl (Vitamin B1 Tab) 100 mg PO DAILY [facility] Last Admin: 03/02/18 11:26 Dose: 100 mg - Scribe Statement The provider has reviewed the documentation as recorded by the Scribe - Scribe Statement Lucina Frausto All medical record entries made by the Scribe were at my direction and personally dictated by me. I have reviewed the chart and agree that the record accurately reflects my personal performance of the history, physical exam, medical decision making, and the department course for this patient. I have also personally directed, reviewed, and agree with the discharge instructions and disposition. (Jerry Gonzales) Disposition/Present on Arrival - Present on Arrival Any Indicators Present on Arrival: Yes History of DVT/PE: Yes History of Uncontrolled Diabetes: No Urinary Catheter: No History of Decub. Ulcer: No History Surgical Site Infection Following: None - Disposition Have Diagnosis and Disposition been Completed?: Yes Disposition Time: 21:34 Patient Plan: Admission, Telemetry - Disposition Diagnosis: Chest pain, Opiate overdose Disposition: HOSPITALIZED Condition: SERIOUS
[2018-03-01 13:54] LABS: BASO # 0.03 K/mm3 (0.0-2.0); BASO % 0.4 % (0.0-3.0); EOS # 0.2 (0.0-0.7); EOS % 2.6 % (1.5-5.0); GRAN # 4.25 (1.4-6.5); GRAN % 62.5 % (50.0-68.0); HEMOGLOBIN 14.8 g/dL (12.0-16.0); LYMPH # 1.9 (1.2-3.4); LYMPH % 27.9 % (22.0-35.0); MEAN CELL VOLUME 95.5 fl (80.0-105.0); MEAN CORPUSCULAR HEMOGLOBIN 31.9 pg (25.0-35.0); MEAN CORPUSCULAR HGB CONC 33.4 g/dl (31.0-37.0); MEAN PLATELET VOLUME 10.5 fl (7.0-11.0); MONO # 0.5 (0.1-0.6); MONO % 6.6 % (1.0-6.0); RBC 4.64 10^6/uL (3.5-6.1); RED CELL DISTRIBUTION WIDTH 12.9 % (11.5-14.5); WHITE BLOOD COUNT 6.8 10^3/ul (4.5-11.0)
[2018-03-01 14:02] LABS: ACETAMINOPHEN < 10.0 ug/ml (10.0-20.0); SALICYLATE < 1 mg/dL (2.0-20.0)
[2018-03-01 14:03] LABS: ALB/GLOB RATIO 1.3 (1.1-1.8); ALBUMIN 4.3 g/dL (3.0-4.8); ALT/SGPT 52 U/L (7-56); AST/SGOT 48 U/L (14-36); BLOOD UREA NITROGEN 14 mg/dL (7-21); CALCIUM 9.8 mg/dL (8.4-10.5); GFR AFRICAN-AMERICAN > 60; GFR NON-AFRICAN AMERICAN 52
[2018-03-01] MEDS: Sodium Chloride 0.9% 1,000 ML IV SCH (14:26)
[2018-03-01 15:09] LABS: URINE APPEARANCE CLEAR (CLEAR); URINE BILIRUBIN NEGATIVE (NEGATIVE); URINE BLOOD NEGATIVE (NEGATIVE); URINE COLOR YELLOW (YELLOW); URINE GLUCOSE (UA) NEGATIVE (NEGATIVE); URINE LEUKOCYTE ESTERASE NEGATIVE Leu/uL (NEGATIVE); URINE PROTEIN NEGATIVE mg/dL (<30 mg/dL); URINE UROBILINOGEN 0.2 E.U./dL (<1 E.U./dL)
[2018-03-01 15:51] LABS: BARBITURATES, UR NEGATIVE (NEGATIVE); BENZODIAZEPINES, UR NEGATIVE (NEGATIVE); OPIATES, UR POSITIVE (NEGATIVE); PHENCYCLIDINE, UR NEGATIVE (NEGATIVE)
--- NOTE | 2018-03-01 16:16 | RAD ---
HISTORY: overdose COMPARISON: 06/14/2017 FINDINGS: LUNGS: No active pulmonary disease. PLEURA: No significant pleural effusion identified, no pneumothorax apparent. CARDIOVASCULAR: Normal. OSSEOUS STRUCTURES: No significant abnormalities. VISUALIZED UPPER ABDOMEN: Normal. OTHER FINDINGS: None. IMPRESSION: No active disease.
--- NOTE | 2018-03-01 21:22 | CP.PCM.HP ---
<Maggie Barraza - Last Filed: 03/02/18 04:30> History of Present Illness - History of Present Illness History of Present Illness: Maggie Barraza, PGY1, H&P for Dr Perdue: CC: unresponsive 52 year old female with PMH PE and cardiac arrest (2015), substance abuse, GERD , presents after being found unresponsive on bus this afternoon. Pt states that she decided to treat herself today after a long week at work, and got herself a bag of heroin around 12 noon today. She then was coming back home on the bus, and was snorting it. She passed out, and woke up in the ambulance after that. Patient reportedly was found by business development associate on the bus, face down on the floor. EMS notes patient was unresponsive and had slow respirations, was given intranasal Narcan with immediate improvement. Pt improved in the ED. She however , complains of intermittent chest pain for past 2 months. She states that it starts anytime, mostly at rest while watching TV, describes it as left sided, dull achy pain, lasting an hour when it comes, occurs every few days. Verbalizes associated epigastric pain, nausea, denies sob, diaphoresis, palpitations. States that walking and Pepto Bismol sometimes help to relieve it. 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 Pt otherwise denies fever, chills, neck pain, peluritic cp, cough, hemoptysis, orthopnea, wheezing, calf pain/swelling, immobility, long travel, diarrhea, constipation, urinary symptoms. In ED, pt afebrile, vitals stable. UDS pos for opiates, methadone, Alcohol level elevated. Pt also found to have elevated D dimer, V/Q scan ordered. 12 point ROS obtained and negative, except as per HPI. PMD: Dr Shrestha ([place]) PMH: TIA, PE (10/2016), cardiac arrest (10/2016), syncope, GERD, HTN? PSH: 3 C sections, tonsillectomy, adenoid removal All: NKA FH: Father, melanoma, on dialysis Mother, dementia Brother, lung cancer SH: Lives with daughter. 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 Drinks 1/2 bottle of wine or 3-4 cans of beer 3-4 times/week. Smokes 4 ciggs/days x 20 years. Snorts heroin every few months. Home Meds: none Present on Admission - Present on Admission Any Indicators Present on Admission: Yes History of DVT/PE: Yes History of Uncontrolled Diabetes: No Urinary Catheter: No Decubitus Ulcer Present: No Review of Systems - Review of Systems All systems: reviewed and no additional remarkable complaints except Review of Systems: as per HPI Past Patient History - Infectious Disease Hx of Infectious Diseases: None - Tetanus Immunizations Tetanus Immunization: Unknown - Past Social History Smoking Status: Light Smoker < 10 Cigarettes Daily - CARDIAC Hx Cardiac Disorders: Yes Hx Hypertension: Yes Other/Comment: cardiac arrest, - PULMONARY Hx Respiratory Disorders: Yes Hx Pulmonary Embolism: Yes - NEUROLOGICAL Hx Neurological Disorder: No - HEENT Hx HEENT Problems: No - RENAL Hx Chronic Kidney Disease: No - ENDOCRINE/METABOLIC Hx Endocrine Disorders: Yes Hx Hypothyroidism: Yes - HEMATOLOGICAL/ONCOLOGICAL Hx Blood Disorders: Yes Hx Hepatitis C: Yes - INTEGUMENTARY Hx Dermatological Problems: No - MUSCULOSKELETAL/RHEUMATOLOGICAL Hx Musculoskeletal Disorders: Yes Hx Herniated Disk: Yes - GASTROINTESTINAL Hx Gastrointestinal Disorders: No - GENITOURINARY/GYNECOLOGICAL Hx Genitourinary Disorders: No - PSYCHIATRIC Hx Psychophysiologic Disorder: No Hx Substance Use: Yes - SURGICAL HISTORY Hx Section: Yes (x3) Hx Tonsillectomy: Yes Other/Comment: - ANESTHESIA Hx Anesthesia: Yes Hx Anesthesia Reactions: No Hx Malignant Hyperthermia: No Meds Allergies/Adverse Reactions: Allergies Allergy/AdvReac Type Severity Reaction Status Date / Time No Known Allergies Allergy Verified 03/01/18 13:14 Physical Exam - Constitutional Appears: Non-toxic, No Acute Distress - Head Exam Head Exam: ATRAUMATIC, NORMOCEPHALIC - Eye Exam Eye Exam: EOMI, PERRL. absent: Conjunctival injection, Scleral icterus Pupil Exam: NORMAL ACCOMODATION, PERRL. absent: Fixed, Irregular, Unequal - ENT Exam ENT Exam: Mucous Membranes Moist - Neck Exam Neck exam: Positive for: Full Rom - Respiratory Exam Respiratory Exam: Clear to Auscultation Bilateral, NORMAL BREATHING PATTERN. absent: Accessory Muscle Use, Chest Wall Tenderness, Rhonchi, Wheezes - Cardiovascular Exam Cardiovascular Exam: RRR, +S1, +S2. absent: Systolic Murmur - GI/Abdominal Exam GI & Abdominal Exam: Normal Bowel Sounds, Soft. absent: Distended, Guarding, Mass, Rebound, Rigid, Tenderness - Extremities Exam Extremities exam: Positive for: normal inspection. Negative for: calf tenderness, pedal edema - Back Exam Back exam: NORMAL INSPECTION - Neurological Exam Neurological exam: Alert, Oriented x3 - Psychiatric Exam Psychiatric exam: Normal Affect, Normal Mood - Skin Skin Exam: Dry, Normal Color, Warm Results - Vital Signs Recent Vital Signs: Last Vital Signs Temp 98 F 03/01/18 13:23 Pulse 74 03/01/18 17:50 Resp 16 03/01/18 17:50 BP 145/63 03/01/18 17:50 Pulse Ox 94 L 03/01/18 17:50 - Labs Result Diagrams: 03/01/18 13:40 03/01/18 13:40 Labs: Laboratory Results - last 24 hr 03/01/18 03/01/18 03/01/18 13:40 13:40 13:40 WBC 6.8 D RBC 4.64 Hgb 14.8 Hct 44.3 MCV 95.5 MCH 31.9 MCHC 33.4 RDW 12.9 Plt Count 217 MPV 10.5 Gran % 62.5 Lymph % (Auto) 27.9 [place] % (Auto) 6.6 H Eos % (Auto) 2.6 Baso % (Auto) 0.4 Gran # 4.25 Lymph # (Auto) 1.9 [place] # (Auto) 0.5 Eos # (Auto) 0.2 Baso # (Auto) 0.03 Sodium 140 Potassium 3.8 Chloride 105 Carbon Dioxide 20 L Anion Gap 19 BUN 14 Creatinine 1.1 Est GFR ( Amer) > 60 Est GFR (Non-Af Amer) 52 Random Glucose 120 H Calcium 9.8 Total Bilirubin 0.2 AST 48 H D ALT 52 Alkaline Phosphatase 76 Total Creatine Kinase 165 Total Protein 7.7 Albumin 4.3 Globulin 3.4 Albumin/Globulin Ratio 1.3 Urine Color Urine Appearance Urine pH Ur Specific [place] Urine Protein Urine Glucose (UA) Urine Ketones Urine Blood Urine Nitrate Urine Bilirubin Urine Urobilinogen Ur Leukocyte Esterase Salicylates < 1 L Urine Opiates Screen Urine Methadone Screen Acetaminophen < 10.0 L Ur Barbiturates Screen Ur Phencyclidine Scrn Ur Amphetamines Screen U Benzodiazepines Scrn U Oth Cocaine Metabols U Cannabinoids Screen Alcohol, Quantitative 04/07/1103/01/18 03/01/18 13:40 14:50 14:50 WBC RBC Hgb Hct MCV MCH MCHC RDW Plt Count MPV Gran % Lymph % (Auto) [place] % (Auto) Eos % (Auto) Baso % (Auto) Gran # Lymph # (Auto) [place] # (Auto) Eos # (Auto) Baso # (Auto) Sodium Potassium Chloride Carbon Dioxide Anion Gap BUN Creatinine Est GFR ( Amer) Est GFR (Non-Af Amer) Random Glucose Calcium Total Bilirubin AST ALT Alkaline Phosphatase Total Creatine Kinase Total Protein Albumin Globulin Albumin/Globulin Ratio Urine Color Yellow Urine Appearance Clear Urine pH 6.0 Ur Specific [place] 1.025 Urine Protein Negative Urine Glucose (UA) Negative Urine Ketones Negative Urine Blood Negative Urine Nitrate Negative Urine Bilirubin Negative Urine Urobilinogen 0.2 Ur Leukocyte Esterase Negative Salicylates Urine Opiates Screen Positive H Urine Methadone Screen Positive H Acetaminophen Ur Barbiturates Screen Negative Ur Phencyclidine Scrn Negative Ur Amphetamines Screen Negative U Benzodiazepines Scrn Negative U Oth Cocaine Metabols Negative U Cannabinoids Screen Negative Alcohol, Quantitative 77 H Assessment & Plan - Assessment and Plan (Free Text) Assessment: 52 year old female with PMH PE, cardiac arrest, TIA, GERD, presents for intermittent chest pain: Intermittent chest pain: 2/2 GERD vs ACS vs PE vs substance induced - EKG shows HR 71, NSR. QTc 473 ms. - Serial trops - F/u EKG in AM - ASA, lipitor - PE Wells score 1.5: low probability - PT/PTT normal range. F/u anticoagulation workup. - D dimer elevated 671. V/Q scan neg. Couldnt do CTA as poor IV access. - Given therapeutic one time dose of Lovenox 1mg/kg in ED - US LE neg for DVT - CXR showed no acute findings - UDS + opiates and methadone - Alcohol level 77 - Protonix ETOH intoxication/withdrawal: - CIWA protocol - fall/seizure precautions - aspiration precautions - Ativan prn Heroin Overdose/substance abuse: - advised cessation - cont to monitor Hx of HTN: - Normotensive currently - Cont to monitor PPX: SCDs, Protonix Diet: HHD Discussed with Dr Perdue. - Date & Time Date: 03/02/18 Time: 04:31 <Nette CASAS,Chat[place] - Last Filed: 04/08/18 11:27> Results - Vital Signs Recent Vital Signs: Last Vital Signs Temp 97.8 F 03/03/18 06:00 Pulse 74 03/03/18 10:00 Resp 20 03/03/18 06:00 BP 134/88 03/03/18 06:00 Pulse Ox 96 03/03/18 06:00 - Labs Result Diagrams: 03/03/18 09:50 03/03/18 09:50 Attending/Attestation - Attestation I have personally seen and examined this patient.: Yes I have fully participated in the care of the patient.: Yes I have reviewed all pertinent clinical information: Yes Notes (Text): -I agree with the above H&P completed by the resident physician.
[2018-03-01 22:00] LABS: INR 0.96 (0.93-1.08); PARTIAL THROMBOPLASTIN TIME 27.1 Seconds (25.1-36.5); PROTHROMBIN TIME 10.9 SECONDS (9.4-12.5)
[2018-03-01] MEDS ORDERED: Enoxaparin 80 mg Syringe SC STA (22:09)
--- NOTE | 2018-03-02 00:33 | CARD ---
APPROVED REPORT EKG Measurement Heart [id number] ID [id number] <Conclusion> Normal sinus rhythm Normal ECG
[2018-03-02] MEDS: Sodium Chloride 0.9% 1,000 ML IV SCH ×3 (00:34→20:21)
[2018-03-02 07:05] LABS: HDL CHOLESTEROL 75 mg/dL (29-60)
[2018-03-02 07:14] LABS: TROPONIN I < 0.01 ng/mL
[2018-03-02 07:15] LABS: LDL CHOLESTEROL 86 mg/dL (0-129)
--- NOTE | 2018-03-02 09:38 | CARD ---
APPROVED REPORT EKG Measurement Heart [id number] <Conclusion> Sinus bradycardia Otherwise normal ECG No change
[2018-03-02] MEDS ORDERED: Multivitamin (MVI) 10 ML, Thiamine 100 MG, Folic Acid 1 MG in Sodium Chloride 0.9% 1,00... IV ONE (10:21)
--- NOTE | 2018-03-02 11:22 | CT ---
PROCEDURE: CT HEAD WITHOUT CONTRAST. HISTORY: presented s/p fall hx of TIA COMPARISON: None available. TECHNIQUE: Axial computed tomography images were obtained through the head/brain without intravenous contrast. Radiation dose: Total exam DLP = 803 mGy-cm. This CT exam was performed using one or more of the following dose reduction techniques: Automated exposure control, adjustment of the mA and/or kV according to patient size, and/or use of iterative reconstruction technique. FINDINGS: HEMORRHAGE: No intracranial hemorrhage. BRAIN: No mass effect or edema. No atrophy or chronic microvascular ischemic changes. VENTRICLES: Unremarkable. No hydrocephalus. CALVARIUM: Unremarkable. PARANASAL SINUSES: Unremarkable as visualized. No significant inflammatory changes. MASTOID AIR CELLS: Unremarkable as visualized. No inflammatory changes. OTHER FINDINGS: None. IMPRESSION: No acute finding
[2018-03-02] MEDS: Multivitamin Therapeutic Tab PO SCH (11:26)
--- NOTE | 2018-03-02 14:36 | CON ---
DATE: CARDIOLOGY CONSULT REASON FOR CONSULTATION: Syncopal episode. HISTORY OF PRESENT ILLNESS: The patient is a 52-year-old female who is a former cocaine abuse and current heroin abuser. She was found to be unresponsive in a bus by the business intelligence reporting analyst, who activated the EMS. The patient was found by the EMS to be unresponsive with slow breathing and administered intranasal Narcan with immediate improvement. The patient denies any chest pain or shortness of breath at this time. The patient was admitted in 10/2016 with cardiac arrest and was found to be positive for cocaine. Cardiac catheterization revealed nonobstructive coronary artery disease. SOCIAL HISTORY: The patient is a smoker and drinker. MEDICATIONS: Aspirin 81 mg once a day, Ativan 1 mg intravenously every 6 hours p.r.n., folic acid 1 mg daily, subcutaneous heparin 5000 International Units every 8 hours, Lipitor 20 mg once a day, normal saline 100 mL an hour, thiamine 100 mg once a day, multivitamin 1 tablet once a day. REVIEW OF SYSTEMS: No report of seizures. No tongue biting and no urinary incontinence. PHYSICAL EXAMINATION: GENERAL: The patient is an middle-aged female, who does not appear to be in any acute distress. VITAL SIGNS: Blood pressure 128/84, heart rate 65, temperature 97.9, respirations 20. HEENT: Normocephalic. CHEST: Clear. HEART: S1 and S2 regular. EXTREMITIES: No edema. LABORATORY DATA: Drug screen is positive for opiates, methadone and alcohol level of 77. SMA-7 is within normal limits except for glucose of 120 and carbon dioxide of 20. Three sets of troponins were negative. HDL cholesterol is 75. The rest of lipid profile is within normal limit. Hemoglobin, hematocrit, white count and platelet count are within normal limit. D-Dimer 671. Head CT scan without contrast, no acute findings. EKG revealed sinus bradycardia at 59. ASSESSMENT: 1. Heroin abuse. 2. History of cardiac arrest in 10/2016. This is positive for cocaine and CT angiogram revealed right lower lobe pulmonary emboli. RECOMMENCATIONS: Continue current aspirin 81 mg once a day, IV p.r.n. Ativan, subcutaneous heparin, Lipitor, IV fluid and thiamine as well as multivitamin. Obtain and echocardiogram. The most recent study from 10/2016, which revealed ejection fraction in the range of 50-55%. Jeferson Treadwell MD [facility] # [id number]
[2018-03-02 20:47] VITALS: RESP 20
[2018-03-03 01:08] VITALS: O2SAT 96
[2018-03-03] MEDS: Sodium Chloride 0.9% 1,000 ML IV SCH (05:54)
[2018-03-03 06:54] VITALS: BP 134/88; TEMP 97.8
[2018-03-03] MEDS ORDERED: Pantoprazole 40 mg EC Tab PO SCH (07:30)
[2018-03-03] MEDS: Multivitamin Therapeutic Tab PO SCH (08:43)
[2018-03-03 09:59] LABS: BASO # 0.02 K/mm3 (0.0-2.0); BASO % 0.5 % (0.0-3.0); EOS # 0.2 (0.0-0.7); EOS % 3.6 % (1.5-5.0); GRAN # 2.58 (1.4-6.5); GRAN % 61.4 % (50.0-68.0); HEMOGLOBIN 13.1 g/dL (12.0-16.0); LYMPH % 23.8 % (22.0-35.0); MEAN CELL VOLUME 95.5 fl (80.0-105.0); MEAN CORPUSCULAR HEMOGLOBIN 31.3 pg (25.0-35.0); MEAN CORPUSCULAR HGB CONC 32.8 g/dl (31.0-37.0); MEAN PLATELET VOLUME 10.5 fl (7.0-11.0); MONO # 0.5 (0.1-0.6); MONO % 10.7 % (1.0-6.0); RBC 4.18 10^6/uL (3.5-6.1); RED CELL DISTRIBUTION WIDTH 12.8 % (11.5-14.5); WHITE BLOOD COUNT 4.2 10^3/ul (4.5-11.0)
[2018-03-03 10:11] LABS: ALB/GLOB RATIO 1.1 (1.1-1.8); ALBUMIN 3.5 g/dL (3.0-4.8); ALT/SGPT 40 U/L (7-56); AST/SGOT 32 U/L (14-36); BLOOD UREA NITROGEN 13 mg/dL (7-21); CALCIUM 9.7 mg/dL (8.4-10.5); GFR AFRICAN-AMERICAN > 60; GFR NON-AFRICAN AMERICAN > 60
[2018-03-03 10:54] VITALS: PULSE 74
--- NOTE | 2018-03-03 14:18 | CP.PCM.DIS ---
<Juan Manuel Jj - Last Filed: 03/03/18 14:18> Provider - Provider Date of Admission: 03/01/18 21:19 Attending physician: Holli Boykin MD Primary care physician: PMD: Dr. Guillaume Consults: Cardio: Dr. Treadwell Time Spent in preparation of Discharge (in minutes): 35 Hospital Course - Lab Results Lab Results: Most Recent Lab Values WBC 4.2 10^3/ul (4.5-11.0) L D 03/03/18 09:50 RBC 4.18 10^6/uL (3.5-6.1) 03/03/18 09:50 Hgb 13.1 g/dL (12.0-16.0) 03/03/18 09:50 Hct 39.9 % (36.0-48.0) 03/03/18 09:50 MCV 95.5 fl (80.0-105.0) 03/03/18 09:50 MCH 31.3 pg (25.0-35.0) 03/03/18 09:50 MCHC 32.8 g/dl (31.0-37.0) 03/03/18 09:50 RDW 12.8 % (11.5-14.5) 03/03/18 09:50 Plt Count 209 10^3/uL (120.0-450.0) 03/03/18 09:50 MPV 10.5 fl (7.0-11.0) 03/03/18 09:50 Gran % 61.4 % (50.0-68.0) 03/03/18 09:50 Lymph % (Auto) 23.8 % (22.0-35.0) 03/03/18 09:50 [place] % (Auto) 10.7 % (1.0-6.0) H 03/03/18 09:50 Eos % (Auto) 3.6 % (1.5-5.0) 03/03/18 09:50 Baso % (Auto) 0.5 % (0.0-3.0) 03/03/18 09:50 Gran # 2.58 (1.4-6.5) 03/03/18 09:50 Lymph # (Auto) 1.0 (1.2-3.4) L 03/03/18 09:50 [place] # (Auto) 0.5 (0.1-0.6) 03/03/18 09:50 Eos # (Auto) 0.2 (0.0-0.7) 03/03/18 09:50 Baso # (Auto) 0.02 K/mm3 (0.0-2.0) 03/03/18 09:50 PT 10.9 SECONDS (9.4-12.5) 03/01/18 21:00 INR 0.96 (0.93-1.08) 03/01/18 21:00 APTT 27.1 Seconds (25.1-36.5) 03/01/18 21:00 D-Dimer, Quantitative 671 ng/mL (0-243) H 03/01/18 20:15 Sodium 139 mmol/L (132-148) 03/03/18 09:50 Potassium 4.0 mmol/L (3.6-5.0) 03/03/18 09:50 Chloride 107 mmol/L (98-107) 03/03/18 09:50 Carbon Dioxide 26 mmol/L (21-33) 03/03/18 09:50 Anion Gap 11 (10-20) 03/03/18 09:50 BUN 13 mg/dL (7-21) 03/03/18 09:50 Creatinine 0.8 mg/dl (0.7-1.2) 03/03/18 09:50 Est GFR ( Amer) > 60 03/03/18 09:50 Est GFR (Non-Af Amer) > 60 03/03/18 09:50 Random Glucose 145 mg/dL (70-110) H 03/03/18 09:50 Hemoglobin A1c 5.5 % (4.2-6.5) 03/01/18 22:45 Calcium 9.7 mg/dL (8.4-10.5) 03/03/18 09:50 Phosphorus 2.8 mg/dL (2.5-4.5) 03/03/18 09:50 Magnesium 1.9 mg/dL (1.7-2.2) 03/03/18 09:50 Total Bilirubin < 0.1 mg/dL (0.2-1.3) L 03/03/18 09:50 AST 32 U/L (14-36) 03/03/18 09:50 ALT 40 U/L (7-56) 03/03/18 09:50 Alkaline Phosphatase 68 U/L (38-126) 03/03/18 09:50 Total Creatine Kinase 165 U/L (35-230) 03/01/18 13:40 Troponin I < 0.01 ng/mL 03/02/18 12:00 Total Protein 6.6 g/dL (5.8-8.3) 03/03/18 09:50 Albumin 3.5 g/dL (3.0-4.8) 03/03/18 09:50 Globulin 3.1 gm/dL 03/03/18 09:50 Albumin/Globulin Ratio 1.1 (1.1-1.8) 03/03/18 09:50 Triglycerides 64 mg/dL (35-160) 03/02/18 06:30 Cholesterol 196 mg/dL (130-200) 03/02/18 06:30 LDL Cholesterol Direct 86 mg/dL (0-129) 03/02/18 06:30 HDL Cholesterol 75 mg/dL (29-60) H 03/02/18 06:30 Urine Color Yellow (YELLOW) 03/01/18 14:50 Urine Appearance Clear (CLEAR) 03/01/18 14:50 Urine pH 6.0 (4.7-8.0) 03/01/18 14:50 Ur Specific [place] 1.025 (1.005-1.035) 03/01/18 14:50 Urine Protein Negative mg/dL (<30 mg/dL) 03/01/18 14:50 Urine Glucose (UA) Negative mg/dL (NEGATIVE) 03/01/18 14:50 Urine Ketones Negative mg/dL (NEGATIVE) 03/01/18 14:50 Urine Blood Negative (NEGATIVE) 03/01/18 14:50 Urine Nitrate Negative (NEGATIVE) 03/01/18 14:50 Urine Bilirubin Negative (NEGATIVE) 03/01/18 14:50 Urine Urobilinogen 0.2 E.U./dL (<1 E.U./dL) 03/01/18 14:50 Ur Leukocyte Esterase Negative [place]/uL (NEGATIVE) 03/01/18 14:50 Salicylates < 1 mg/dL (2.0-20.0) L 03/01/18 13:40 Urine Opiates Screen Positive (NEGATIVE) H 03/01/18 14:50 Urine Methadone Screen Positive (NEGATIVE) H 03/01/18 14:50 Acetaminophen < 10.0 ug/ml (10.0-20.0) L 03/01/18 13:40 Ur Barbiturates Screen Negative (NEGATIVE) 03/01/18 14:50 Ur Phencyclidine Scrn Negative (NEGATIVE) 03/01/18 14:50 Ur Amphetamines Screen Negative (NEGATIVE) 03/01/18 14:50 U Benzodiazepines Scrn Negative (NEGATIVE) 03/01/18 14:50 U Oth Cocaine Metabols Negative (NEGATIVE) 03/01/18 14:50 U Cannabinoids Screen Negative (NEGATIVE) 03/01/18 14:50 Alcohol, Quantitative 77 mg/dL (0-10) H 03/01/18 13:40 - Hospital Course Hospital Course: Patient is a 52 year old female with past medical history of PE and cardiac arrest in 10/2016, TIA, syncope, GERD, HTN who presented to [facility] via EMS after being found unresponsive on a city bus on 03/02/2018 after apparent ingestion of heroin. Patient was given narcan with immediate improvement of mentation and breathing status. While in [facility] patient UDS was positive for methadone and opiates. Patient had complained of chest pain at time of evaluation in ED. Patient was admitted to hospital for syncope and chest pain. Cardiology with Dr. Treadwell was consulted and evaluated the patient with recommendations for aspirin therapy, statin, and evaluation via echocardiogram. Patient was placed on CIWA protocol and social work was consulted for alcohol and drug counseling. Patient reported anxiety during her stay, in an attempt to address this issue psychiatry consultation was offered and denied by patient. Patient indicated she was not suicidal nor did she have thoughts of harming others and that her recent use of heroin was in relation to the stress of her life. On second day of admission patient became agitated and requested to sign out against medical advice. Patient risks and benefits for staying for further evaluation were discussed and patient was in understanding. - Date & Time of H&P Date of H&P: 03/02/18 Time of H&P: 02:21 Discharge Exam - Head Exam Head Exam: ATRAUMATIC, NORMOCEPHALIC - Eye Exam Eye Exam: EOMI, PERRL - Respiratory Exam Respiratory Exam: Clear to PA & Lateral, NORMAL BREATHING PATTERN. absent: Rales, Rhonchi, Wheezes, Stridor - Cardiovascular Exam Cardiovascular Exam: REGULAR RHYTHM, +S1, +S2 - GI/Abdominal Exam GI & Abdominal Exam: Normal Bowel Sounds, Soft. absent: Firm, Rigid, Tenderness - Extremities Exam Extremities exam: normal inspection, pedal pulses present - Neurological Exam Neurological exam: Alert, Normal Gait, Oriented x3 - Psychiatric Exam Psychiatric exam: Agitated, Anxious - Skin Skin Exam: Dry, Intact, Warm Discharge Plan - Follow Up Plan Condition: SERIOUS Disposition: AGAINST MEDICAL ADVICE Instructions: Chest Pain (ED), Chest Pain (DC), Chest Pain (GEN), Acute Abdominal Pain (DC), Acute Abdominal Pain (GEN) <Holli Boykin - Last Filed: 03/03/18 16:06> Provider - Provider Date of Admission: 03/01/18 21:19 Attending physician: Holli Boykin [facility] Course - Lab Results Lab Results: Most Recent Lab Values WBC 4.2 10^3/ul (4.5-11.0) L D 03/03/18 09:50 RBC 4.18 10^6/uL (3.5-6.1) 03/03/18 09:50 Hgb 13.1 g/dL (12.0-16.0) 03/03/18 09:50 Hct 39.9 % (36.0-48.0) 03/03/18 09:50 MCV 95.5 fl (80.0-105.0) 03/03/18 09:50 MCH 31.3 pg (25.0-35.0) 03/03/18 09:50 MCHC 32.8 g/dl (31.0-37.0) 03/03/18 09:50 RDW 12.8 % (11.5-14.5) 03/03/18 09:50 Plt Count 209 10^3/uL (120.0-450.0) 03/03/18 09:50 MPV 10.5 fl (7.0-11.0) 03/03/18 09:50 Gran % 61.4 % (50.0-68.0) 03/03/18 09:50 Lymph % (Auto) 23.8 % (22.0-35.0) 03/03/18 09:50 [place] % (Auto) 10.7 % (1.0-6.0) H 03/03/18 09:50 Eos % (Auto) 3.6 % (1.5-5.0) 03/03/18 09:50 Baso % (Auto) 0.5 % (0.0-3.0) 03/03/18 09:50 Gran # 2.58 (1.4-6.5) 03/03/18 09:50 Lymph # (Auto) 1.0 (1.2-3.4) L 03/03/18 09:50 [place] # (Auto) 0.5 (0.1-0.6) 03/03/18 09:50 Eos # (Auto) 0.2 (0.0-0.7) 03/03/18 09:50 Baso # (Auto) 0.02 K/mm3 (0.0-2.0) 03/03/18 09:50 PT 10.9 SECONDS (9.4-12.5) 03/01/18 21:00 INR 0.96 (0.93-1.08) 03/01/18 21:00 APTT 27.1 Seconds (25.1-36.5) 03/01/18 21:00 D-Dimer, Quantitative 671 ng/mL (0-243) H 03/01/18 20:15 Sodium 139 mmol/L (132-148) 03/03/18 09:50 Potassium 4.0 mmol/L (3.6-5.0) 03/03/18 09:50 Chloride 107 mmol/L (98-107) 03/03/18 09:50 Carbon Dioxide 26 mmol/L (21-33) 03/03/18 09:50 Anion Gap 11 (10-20) 03/03/18 09:50 BUN 13 mg/dL (7-21) 03/03/18 09:50 Creatinine 0.8 mg/dl (0.7-1.2) 03/03/18 09:50 Est GFR ( Amer) > 60 03/03/18 09:50 Est GFR (Non-Af Amer) > 60 03/03/18 09:50 Random Glucose 145 mg/dL (70-110) H 03/03/18 09:50 Hemoglobin A1c 5.5 % (4.2-6.5) 03/01/18 22:45 Calcium 9.7 mg/dL (8.4-10.5) 03/03/18 09:50 Phosphorus 2.8 mg/dL (2.5-4.5) 03/03/18 09:50 Magnesium 1.9 mg/dL (1.7-2.2) 03/03/18 09:50 Total Bilirubin < 0.1 mg/dL (0.2-1.3) L 03/03/18 09:50 AST 32 U/L (14-36) 03/03/18 09:50 ALT 40 U/L (7-56) 03/03/18 09:50 Alkaline Phosphatase 68 U/L (38-126) 03/03/18 09:50 Total Creatine Kinase 165 U/L (35-230) 03/01/18 13:40 Troponin I < 0.01 ng/mL 03/02/18 12:00 Total Protein 6.6 g/dL (5.8-8.3) 03/03/18 09:50 Albumin 3.5 g/dL (3.0-4.8) 03/03/18 09:50 Globulin 3.1 gm/dL 03/03/18 09:50 Albumin/Globulin Ratio 1.1 (1.1-1.8) 03/03/18 09:50 Triglycerides 64 mg/dL (35-160) 03/02/18 06:30 Cholesterol 196 mg/dL (130-200) 03/02/18 06:30 LDL Cholesterol Direct 86 mg/dL (0-129) 03/02/18 06:30 HDL Cholesterol 75 mg/dL (29-60) H 03/02/18 06:30 Urine Color Yellow (YELLOW) 03/01/18 14:50 Urine Appearance Clear (CLEAR) 03/01/18 14:50 Urine pH 6.0 (4.7-8.0) 03/01/18 14:50 Ur Specific [place] 1.025 (1.005-1.035) 03/01/18 14:50 Urine Protein Negative mg/dL (<30 mg/dL) 03/01/18 14:50 Urine Glucose (UA) Negative mg/dL (NEGATIVE) 03/01/18 14:50 Urine Ketones Negative mg/dL (NEGATIVE) 03/01/18 14:50 Urine Blood Negative (NEGATIVE) 03/01/18 14:50 Urine Nitrate Negative (NEGATIVE) 03/01/18 14:50 Urine Bilirubin Negative (NEGATIVE) 03/01/18 14:50 Urine Urobilinogen 0.2 E.U./dL (<1 E.U./dL) 03/01/18 14:50 Ur Leukocyte Esterase Negative [place]/uL (NEGATIVE) 03/01/18 14:50 Salicylates < 1 mg/dL (2.0-20.0) L 03/01/18 13:40 Urine Opiates Screen Positive (NEGATIVE) H 03/01/18 14:50 Urine Methadone Screen Positive (NEGATIVE) H 03/01/18 14:50 Acetaminophen < 10.0 ug/ml (10.0-20.0) L 03/01/18 13:40 Ur Barbiturates Screen Negative (NEGATIVE) 03/01/18 14:50 Ur Phencyclidine Scrn Negative (NEGATIVE) 03/01/18 14:50 Ur Amphetamines Screen Negative (NEGATIVE) 03/01/18 14:50 U Benzodiazepines Scrn Negative (NEGATIVE) 03/01/18 14:50 U Oth Cocaine Metabols Negative (NEGATIVE) 03/01/18 14:50 U Cannabinoids Screen Negative (NEGATIVE) 03/01/18 14:50 Alcohol, Quantitative 77 mg/dL (0-10) H 03/01/18 13:40 Attending/Attestation - Attestation I have personally seen and examined this patient.: Yes I have fully participated in the care of the patient.: Yes I have reviewed all pertinent clinical information, including history, physical exam and plan: Yes Notes (Text): 03/03/18 16:02 52 year old female with past medical history of TIA and substance/alcohol abuse who presented after being found unresponsive on the bus, possibly after heroin use. She responded to narcan. Urine drug screen was positive for methadone and opiates. She was admitted for evaluation in addition to complaint of chest pain. Serial cardiac enzymes were negative and ACS was ruled out. She was seen by cardiology who ordered for echocardiogram which was pending. She was on ativan for anxiety and possible withdrawal symptoms. She was counselled on risks of continued substance and alcohol abuse. Today she has signed out against medical advice. She was explained the risks of signing out and again counselled as above. Holli Boykin MD Hospitalist.
--- NOTE | 2018-03-03 18:18 | NM ---
COMPARISON: March 01, 2018. Lower extremity duplex venous sonography. Summary of findings on the comparison examination:No sonographic evidence for deep venous thrombosis in the visualized segments of both lower extremities. TECHNIQUE: 34.0 mCi technetium 99-m DTPA aerosol. 4.0 mCI technetium 99-m MAA administered intravenously. FINDINGS: VENTILATION COMPONENT: Mildly heterogeneous ventilation. Retention of radionuclide in the tracheobronchial tree and ingestion of radionuclide in the stomach, incidental findings PERFUSION COMPONENT: Heterogeneous distribution of radionuclide. No geographic, segmental, lobar abnormalities apparent on the present examination. IMPRESSION: Low probability ventilation perfusion scan for pulmonary embolism. Concordant results (preliminary interpretation) provided by [facility]. Procedure Completed: 23:03 Preliminary ([facility]) Report: Dictated and Authenticated: 23:38 Final Interpretation: 11:19 March 02, 2018.
== END 2018-03-03 10:43 | disposition left against medical advice (07) ==
LOC: ED 13:07 → INTOOBSV 21:19 → ERH 21:19 → 3RSO 23:36
PROVIDERS: ADMIT Internal Medicine; ATTEND Internal Medicine
DX: T40.1X1A Poisoning by heroin, accidental (unintentional), initial encounter (principal); F11.10 Opioid abuse, uncomplicated; R07.9 Chest pain, unspecified; I10 Essential (primary) hypertension; F10.129 Alcohol abuse with intoxication, unspecified; Y90.3 Blood alcohol level of 60-79 mg/100 ml; K21.9 Gastro-esophageal reflux disease without esophagitis; I25.10 Atherosclerotic heart disease of native coronary artery without angina pectoris; F41.9 Anxiety disorder, unspecified; R79.1 Abnormal coagulation profile; F17.210 Nicotine dependence, cigarettes, uncomplicated; Z86.74 Personal history of sudden cardiac arrest; Z86.73 Personal history of transient ischemic attack (TIA), and cerebral infarction without residual deficits; Y92.811 Bus as the place of occurrence of the external cause; Z80.1 Family history of malignant neoplasm of trachea, bronchus and lung
CPT/HCPCS: 36415; 70450; 71045; 78582; 80053; 80061; 80320; 80324; 80329; 80345; 80346; 80349; 80353; 80358; 80361; 81003; 81240; 81241; 82550; 83036; 83735; 83992; 84100; 84484; 85025; 85220; 85300; 85303; 85306; 85378; 85610; 85730; 93005; 93970; 96372; 99285; C9113; G0378; J1644; J1650; J2060; J7030